=== PATIENT | male | born 1970 | race Caucasian/White ===

== ENCOUNTER 2018-07-21 07:10 | Inpatient (IN) | payer OTHER ==
[~2018-07-21 07:10] MED LIST: POVIDONE-IODINE 20 ML in SODIUM CL IRRIG SOLUTION 500 ML IRR ONE; ROPIVACAINE 0.2% 80 MG, EPINEPHrine 0.2 MG, KETOROLAC TROMETHAMINE 30 MG in SYRINGE 0 ML IU ONE; TRANEXAMIC ACID 1,000 MG in NS 100 ML IV ONE; TRANEXAMIC ACID 3,000 MG in NS (SYRINGE) 50 ML IRR ONE
[2018-07-21] MEDS ORDERED: GABAPENTIN 300 MG CAP PO ONE (09:58)
[2018-07-21] MEDS ORDERED: ONDANSETRON 4 MG/2 ML VIAL IVP ONE (09:58)
[2018-07-21] MEDS ORDERED: ACETAMINOPHEN 325 MG TAB PO ONE (09:58)
[2018-07-21] MEDS ORDERED: DEXAMETHASONE 4 MG/ML VIAL IVP ONE (09:58)
[2018-07-21] MEDS ORDERED: ceFAZolin 2 GM/DEXTROSE 100 ML IV ONE (09:58)
[2018-07-21] MEDS ORDERED: FAMOTIDINE 20 MG TAB PO ONE (09:58)
[2018-07-21] MEDS ORDERED: LR 1,000 ML IV ONE (10:00)
--- NOTE | 2018-07-21 10:26 | PDANEPAE ---
ANE History of Present Illness right knee OA for TKA ANE Past Medical History - Cardiovascular History Hx Hypertension: No Hx Arrhythmias: No Hx Chest Pain: No Hx Coronary Artery / Peripheral Vascular Disease: No Hx CHF / Valvular Disease: No Hx Palpitations: No - Pulmonary History Hx COPD: No Hx Asthma/Reactive Airway Disease: No Hx Recent Upper Respiratory Infection: No Hx Oxygen in Use at Home: No Hx Sleep Apnea: No Sleep Apnea Screening Result - Last Documented: Negative - Neurologic History Hx Cerebrovascular Accident: No Hx Seizures: No Hx Dementia: No - Endocrine History Hx Diabetes: No - Renal History Hx Renal Disorders: No - Liver History Hx Hepatic Disorders: No - Neurological & Psychiatric Hx Hx Neurological and Psychiatric Disorders: No - Cancer History Hx Cancer: No - Congenital Disorder History Hx Congenital Disorders: No - GI History Hx Gastrointestinal Disorders: No - Other Health History Other Health History: OSTEOARTHRITIS - Chronic Pain History Chronic Pain: Yes (RT KNEE) - Surgical History Prior Surgeries: UMBILICAL HERNIA 01/2018. RT KNEE SCOPE X2. RT SHLDR. LT SHLDR RTC ANE Review of Systems Review of systems is: negative Review of Systems: - Exercise capacity METS (RN): 5 METS ANE Patient History - Allergies Allergies/Adverse Reactions: No Known Allergies Allergy (Unverified 07/09/18 15:20) - Home Medications Home medications: home medication list seen and reviewed Home Medications: Glucosamine/Chondroitin [Glucosamine/Chondroitin (*)] 1 each PO DAILY 07/15/18 [ Last Taken 07/18/18] Multivitamins [Multivitamin (*)] 1 each PO DAILY 07/15/18 [Last Taken 3 Days Ago ~07/18/18] Vitamin B Complex [Vitamin B Complex (OTC)] 1 each PO DAILY 07/15/18 [Last Taken 3 Days Ago ~07/18/18] - NPO status NPO Since - Liquids (Date): 07/21/18 NPO Since - Liquids (Time): 08:00 NPO Since - Solids (Date): 07/20/18 NPO Since - Solids (Time): 20:00 - Anes Hx Anes Hx: no prior problems - Smoking Hx Smoking Status: Never smoked ANE Labs/Vital Signs - Labs Result Diagrams: 07/21/18 10:30 - Vital Signs Blood Pressure: 144/92 Heart Rate: 76 Respiratory Rate: 14 O2 Sat (%): 95 Height: 193.04 cm Weight: 131.542 kg ANE Physical Exam - Airway Neck exam: FROM Mallampati Score: Class 1 Mouth exam: normal dental/mouth exam - Pulmonary Pulmonary: no respiratory distress - Cardiovascular Cardiovascular: regular rate and rhythym - ASA Status ASA Status: II ANE Anesthesia Plan Anesthesia Plan: spinal Regional Anesthesia: continuous NB, adductor canal FNB
[2018-07-21] MEDS ORDERED: PROPOFOL/EMULSION 500 MG/50 ML BOTTLE IV ONE ×2 (10:27→12:48)
[2018-07-21] MEDS ORDERED: LIDOCAINE 2% 5 ML SDV ONE (10:28)
[2018-07-21] MEDS ORDERED: BUPIVACAINE/DEXTROSE 7.5MG/ML 2 ML SPINAL AMP SP ONE (10:28)
[2018-07-21 10:37] LABS: PLATELET COUNT 314 10^3/uL (150-400)
--- NOTE | 2018-07-21 11:02 | PDHPUP ---
History & Physical Update H&P update statement: This history and physical update is based on an assessment of the patient which was completed after admission or registration (within 24 hours), but prior to the surgery/procedure. H&P update: H&P reviewed & patient examined
[2018-07-21] MEDS ORDERED: VANCOMYCIN 1 GM VIAL ONE (11:04)
[2018-07-21] MEDS ORDERED: TRANEXAMIC ACID 3,000 MG/50 ML BAG IRR ONE (11:04)
[2018-07-21] MEDS ORDERED: ceFAZolin 1 GM/5 ML SYR ONE (11:05)
[2018-07-21] MEDS ORDERED: MIDAZOLAM 2 MG/2 ML VIAL IVP ONE (11:33)
[2018-07-21] MEDS ORDERED: ROPIVACAINE HCL 150 MG/30 ML INJ ONE (11:52)
--- NOTE | 2018-07-21 12:01 | POSTANESTH ---
Post Anesthetic Evaluation Cardiovascular Status: Normal, Stable Respiratory Status: Normal, Stable Level of Consciousness/Mental Status: Can Participate in Eval, Alert and Oriented Pain Control: Adequate, Prn Tx Ordered Nausea/Vomiting Control: Adequate, Prn Tx Ordered Complications Possibly Related to Anesthesia: None Noted
[2018-07-21] MEDS ORDERED: MAGNESIUM HYDROXIDE 30 ML UDCUP PO PRN (12:18)
[2018-07-21] MEDS ORDERED: TEMAZEPAM 15 MG CAP PO PRN (12:18)
[2018-07-21] MEDS ORDERED: traMADol 50 MG TAB PO PRN (12:18)
[2018-07-21] MEDS ORDERED: PROMETHAZINE HCL 25 MG/ML INJ IVP PRN (12:18)
[2018-07-21] MEDS ORDERED: METOCLOPRAMIDE 10 MG/2 ML VIAL IVP PRN (12:18)
[2018-07-21] MEDS ORDERED: NS 500 ML IV PRN (12:18)
[2018-07-21] MEDS ORDERED: ONDANSETRON 4 MG/2 ML VIAL IVP PRN ×2 (12:18→12:46)
[2018-07-21] MEDS ORDERED: CYCLOBENZAPRINE 10 MG TAB PO PRN (12:18)
[2018-07-21] MEDS ORDERED: diphenhydrAMINE 25 MG CAP PO PRN (12:18)
[2018-07-21] MEDS ORDERED: DIAZEPAM 5 MG TAB PO PRN (12:18)
[2018-07-21] MEDS ORDERED: oxyCODONE IR 5 MG TAB PO PRN ×2 (12:18→12:46)
[2018-07-21] MEDS ORDERED: PROMETHAZINE HCL 25 MG SUPPR PR PRN (12:18)
[2018-07-21] MEDS ORDERED: LACTULOSE 20 GM/30 ML UDCUP PO PRN (12:18)
[2018-07-21] MEDS ORDERED: DIPHENOXYLATE/ATROPINE LOMOTIL 1 TAB PO PRN (12:18)
[2018-07-21] MEDS ORDERED: POLYETHYLENE GLYCOL 3350 17 GM PKT PO PRN (12:18)
[2018-07-21] MEDS ORDERED: ONDANSETRON DISINTEGRATING 4 MG TAB PO PRN (12:18)
[2018-07-21] MEDS ORDERED: BISACODYL 10 MG SUPP PR PRN (12:18)
[2018-07-21] MEDS ORDERED: LR 1,000 ML IV SCH (12:30)
[2018-07-21] MEDS ORDERED: NALOXONE HCL 0.4 MG/ML INJ IVP PRN (12:46)
[2018-07-21] MEDS ORDERED: fentaNYL 100 MCG/2 ML INJ IVP PRN (12:46)
[2018-07-21] MEDS ORDERED: ACETAMINOPHEN 500 MG TAB PO PRN (12:46)
[2018-07-21] MEDS ORDERED: ALBUTEROL 3 ML DEYVIAL IH PRN (12:46)
[2018-07-21] MEDS ORDERED: HYDROCODONE/APAP 5/325 TAB PO PRN (12:46)
[2018-07-21] MEDS ORDERED: HYDROmorphONE/DILAUDID 2 MG/ML INJ IVP PRN (12:46)
--- NOTE | 2018-07-21 14:09 | PDMN ---
Medical Necessity Medical necessity: Pt meets inpt criteria per MD order and [facility]-700, Knee Arthroplasty, Total, A-2 days. 47 y/o w/unilateral primary OA of R knee admitted for R TKA and post-op care, pre-approved for inpt stay.
--- NOTE | 2018-07-21 14:26 | POSTOPPROG ---
Post Op Note Date of Operation: 07/21/18 Surgeon: Rafa Tong Front End Software Engineer: Rebekah Anesthesiologist: Travis Anesthesia: IV Sedation, Spinal Post-op Diagnosis: Severe degenerative arthritis Procedure: Right total knee arthroplasty Inf/Abcess present in the surg proc area at time of surgery?: No EBL: [id number]
[2018-07-21] MEDS: KETOROLAC 15 MG/1 ML SDV IVP SCH (17:32)
[2018-07-21] MEDS: ACETAMINOPHEN 325 MG TAB PO SCH (17:34)
--- NOTE | 2018-07-21 19:46 | GOP ---
[f rep st] OPERATIVE REPORT DATE OF OPERATION: 07/21/2018 SURGEON: Rafa Tong MD SPORTS MEDICINE COORDINATOR: 1. Best Beltrán CFA. 2. Dr. Pop Dumont. PREOPERATIVE DIAGNOSIS: Right knee severe degenerative arthritis. POSTOPERATIVE DIAGNOSIS: Right knee severe degenerative arthritis. PROCEDURE PERFORMED: On 07/21/2018, a right total knee arthroplasty, cemented, Samano and Nephew Jour shawnee II, posterior stabilized. FINDINGS: DESCRIPTION OF PROCEDURE: The patient was given 2 g of IV Ancef preoperatively, within 60 minutes of surgery. He also received 2000 mg of IV tranexamic acid preoperatively. He was placed on the [facility] room table and given spinal anesthesia with Marcaine by Dr. Robles. He was then placed supine and given IV sedation. A Stringer catheter was not used. A DEISY stocking and SCD were placed on the no noperative leg. A bolster was placed under his right hip to prevent excessive external rotation. His right lower extremity was prepped with ChloraPrep from the upper thigh tourniquet to the tips of the toes. It was draped free using sterile sheets, stockinette, and Ioban plastic adhesive drape. T he lower leg was wrapped with compressive Coban. The leg was exsanguinated with elevation and a 6-in ch compressive wrap, and the pneumatic tourniquet was inflated to 300 mmHg. He had a very large, bul ky leg. His BMI was 35. The [employer] time-out was performed to verify the correct patient identity and the c orrect surgical side and site. The [place] time-out was also performed. The Embraneayo leg holding device was sterilely attached to the operating room table and used throughout the procedure to help position the knee. A straight midline incision was made centered on the patell a. Subcutaneous tissue was sharply divided, and hemostasis was obtained using electrocautery. A med ial subcutaneous flap was developed, and the capsule and synovium were opened in a medial parapatella r fashion. Extensive degenerative changes were present in the medial compartment and the patellofemo ral joint. His medial capsule and periosteum were elevated off the rim of the medial tibial plateau, all the way around to the posteromedial corner. His medial collateral ligament was released enough to balance the medial side of the knee and correct the varus deformity. In order to improve the exposure, his patella was prepared first. The original thickness of the poole lla was measured. Peripheral osteophytes were removed. I cut a flat surface on the back of the poole lla. It was sized for a 41 mm round resurfacing component. I removed enough bone from the patella s uch that the remaining bone plus the thickness of the patellar component re-created the original thic kness of the patella. The composite thickness was 24 mm. The intramedullary alignment guide system was used to set up the distal femoral cut. The distal femu r was cut in 5 degrees of valgus. Because of a 15-degree flexion contracture, I made a +2 mm cut on the distal femur. The sizing jig was used to determine proper femoral sizing. He was a true size 9, without a shift. The 5-in-1 cutting block was applied, and the anterior and posterior condylar cuts and chamfer cuts were made. The final jig was used to remove the central portion of the distal femu r to accommodate the posterior-stabilized femoral component. I was careful to determine rotation by referencing off Maribell line and other bony landmarks. Each cut was checked for accuracy. The fem ur was sized for a size 9 posterior-stabilized component. Next, the tibia was prepared. The proximal tibial cut was made using the extramedullary alignment gu filipe system. The cut was made in a few degrees of posterior slope. I was careful to achieve proper v arus and valgus alignment and proper rotation. The posterior compartment was cleared of meniscal rem nants. Osteophytes were removed from the back of his femoral condyles. I checked the flexion and ex tension gaps, and they were equal and rectangular. His tibia was sized for a size 8 component. With the trial components in place, I selected a 9 mm polyethylene posterior-stabilized tibial insert. T he knee came to full extension, flexed to 125 degrees. His collateral ligaments were stable and joshua nced in 90 degrees of flexion and full extension. The trial patellar button was applied, and patella r tracking was checked. Tracking was excellent without any digital pressure. Then, 40 cc of the joint anesthetic cocktail was injected into the posterior capsule, the quadriceps muscle and tendon areas, and the subcutaneous tissues along the skin edges. The surfaces were prepared for cementing. They were carefully cleaned with the pulsating lavage irri gation and thoroughly dried. The MoxtraoJet device was used to blow dry the cancellous surfaces. A do uble batch of high-viscosity methylmethacrylate cement with 2 g of powdered vancomycin added was mixe d. While it was still in a doughy state, all [address] components were cemented in place. Excess cement was removed before it hardened. The 9 mm trial tibial insert was re-tried and was the proper thickness. The actual component was ins erted and locked into place. The knee was thoroughly irrigated one final time with a dilute Betadine solution. The tourniquet was deflated. Total tourniquet time was 1 hour and 8 minutes. Then, 50 mL of tranexa antionette acid solution was irrigated into the wound. The vastus medialis portion of the extensor mechanism was repaired with several interrupted figure-of -eight #2 FiberWire sutures. The capsule and synovium were closed first with multiple interrupted fi [id number] PDS sutures, followed by a running #2 barbed Ethicon Stratafix PDO suture. Subcutane ous tissues were closed with a running 0 barbed Ethicon Stratafix Monoderm suture. The skin was clos ed with a running 3-0 barbed Ethicon Stratafix Monoderm subcuticular suture. The skin was sealed wit h 1/2-inch Steri-Strips. The wound was covered with a large Mepilex waterproof dressing, and the kne e was wrapped with Kerlix and a 6-inch compressive wrap. A long-leg DEISY stocking and SCD were applie d, followed by the cooling device. The patient wore a stocking and SCD on the opposite leg during th e procedure. The sacral Mepilex dressing was applied. I used a size 9 Samano and Nephew cemented Oxinium posterior-stabilized femoral component, size 8 ceme nted tibial base plate, a 9 mm posterior-stabilized tibial insert, and a 41 mm cemented round all-lul yethylene resurfacing patellar component. The estimated blood loss following deflation of the tourniquet was about 100 cc. The sponge and needle counts were correct on 2 occasions. He was awakened from anesthesia, transferred to his gurney, and taken to the PACU in satisfactory con dition. There were no recognized intraoperative complications. In the PACU, for additional postoper ative pain control, Dr. Robles performed an adductor canal block with an indwelling catheter. Best Beltrán and Dr. Pop Dumont acted as surgical assistants. Their assistance was a medical kamila you for safe completion of the procedure. /[id number]/MODL
[2018-07-21] MEDS: ceFAZolin 2 GM/DEXTROSE 100 ML IV SCH (20:45)
[2018-07-21] MEDS: ASPIRIN 325 MG TAB PO SCH (20:45)
[2018-07-21] MEDS: SENNOSIDES/DOCUSATE SODIUM TAB PO SCH (20:45)
[2018-07-21] MEDS: FAMOTIDINE 20 MG TAB PO SCH (20:46)
[2018-07-22] MEDS: ACETAMINOPHEN 325 MG TAB PO SCH ×3 (00:27→11:33)
[2018-07-22] MEDS: KETOROLAC 15 MG/1 ML SDV IVP SCH ×3 (00:27→11:32)
[2018-07-22] MEDS: ceFAZolin 2 GM/DEXTROSE 100 ML IV SCH (04:23)
--- NOTE | 2018-07-22 07:32 | SOAPPROG ---
SOAP Progress Note Assessment/Plan: Assessment: Afebrile. Awake and alert. Moderate pain. He has been up and walking. Needed Stringer catheter 1 time last night. He is voiding spontaneously now. Postop H&H are good. Postop films look good. Plan: Physical therapy for stairs this morning. Full-length alignment film this morning. Discharge today. 07/22/18 07:31 Objective: Vital Signs Temp Pulse Resp BP Pulse Ox 36.7 C 74 14 119/83 H 99 07/22/18 07:23 07/22/18 07:23 07/22/18 07:23 07/22/18 07:23 07/22/18 07:23 Laboratory Results 07/22/18 04:26 07/21/18 07/22/18 07/23/18 05:59 05:59 05:59 Intake Total 3360 Output Total 2150 Balance 1210 ICD10 Worksheet Patient Problems: Problems Problem Status Onset Osteoarthritis of right knee Acute
--- NOTE | 2018-07-22 07:57 | GDS ---
[f rep st] DISCHARGE SUMMARY ADMISSION DIAGNOSIS: Right knee severe degenerative arthritis. DISCHARGE DIAGNOSIS: Right knee severe degenerative arthritis. OPERATION PERFORMED: 07/21/2018, a right total knee arthroplasty. POSTOPERATIVE COMPLICATIONS: None. CONDITION ON DISCHARGE: Improved. DESCRIPTION OF HOSPITAL COURSE: The patient was admitted to the hospital on the morning of surgery. His admission CBC was normal. The same day, under a combination of Marcaine spinal, IV sedation and adductor canal block, he underwent a right total knee arthroplasty. Postoperatively, he was treated with multimodal DVT prophylaxis. He needed Stringer catheterization 1 time, but was able to void spont aneously after that. On the first postoperative day, his hemoglobin and hematocrit were 14.7 and 42. 4. He was seen by Physical Therapy and made good progress with ambulation and stairs. By the time o f discharge, he was afebrile and was independent walking with crutches. DISPOSITION: The patient discharged to his home. He will go to outpatient physical therapy next week at my office. I will see him back in the office on August 05, 2018. Continue aspirin 325 mg p.o. daily for 21 days. He has prescriptions for Tricia brex, tramadol and oxycodone for pain control. He may progress to full weightbearing on the right as tolerated. Use DEISY stockings for 1 week. If there are any problems, he is to call me at the office . /[id number]/MODL
[2018-07-22] MEDS: FAMOTIDINE 20 MG TAB PO SCH (08:25)
[2018-07-22] MEDS: SENNOSIDES/DOCUSATE SODIUM TAB PO SCH (08:26)
[2018-07-22] MEDS: ASPIRIN 325 MG TAB PO SCH (08:26)
[2018-07-22] MEDS ORDERED: ROPIVACAINE HCL 100 MG/20 ML INJ ONE (09:39)
--- NOTE | 2018-07-22 10:43 | ASMTLACE ---
CHRISTIAN Length of stay for Answers: 2 days current admission Acuity / Level of Answers: Yes Care: Did the patient have an inpatient admission? # of Emergency department Answers: 0 visits in the last 6 months Score: 5 Date Signed: 07/22/2018 10:43 AM Electronically Signed By:FARA Rachel
--- NOTE | 2018-07-22 10:44 | ASMTCMCOM ---
CM Note CM Note Notes: Pt had planned OA of knee, resides with spouse. PT and MD rec outpatient PT. No CM d/c needs identified. Date Signed: 07/22/2018 10:44 AM Electronically Signed By:FARA Rachel
[2018-07-22] MEDS ORDERED: LIPID EMULSION 20% 100 ML IV PRN (10:48)
--- NOTE | 2018-07-22 10:50 | PDPAINCON ---
Pain Management Consultation Patient referred by : Ran - Subjective Pain at rest (/10): 1 Pain with activity (/10): 2 Pain is: low, well controlled Side effects include: drowsy, No itchiness, No rash Activity: able to ambulate - Objective Technique: continuous peripheral nerve block (ropivacaine 0.5%) Catheter site: clean, dry, intact, no erythema/edema/exudate Sensory and motor exam: consistent with block Vital signs: stable - Assessment/Plan Assessment/Plan: pain well-controlled, continue current mgmt (POD 1 s/p R TKA with indwelling adductor canal catheter in place. Re-dosed with 0.5% ropivacaine 30ml today and catheter removed without complication. Patient reports excellent analgesia.)
[2018-07-22 11:44] VITALS: BP 145/82
== END 2018-07-22 13:12 | disposition home or self-care (01) | DRG 470 ==
LOC: F3E 09:50 → F3N 16:05
PROVIDERS: ADMIT Orthopaedic Surgery; ATTEND Orthopaedic Surgery
PROC: 0SRC0J9 Replacement of Right Knee Joint with Synthetic Substitute, Cemented, Open Approach (ICD-10-PCS; principal; 2018-07-21 12:00)
DX: M17.11 Unilateral primary osteoarthritis, right knee (principal); I10 Essential (primary) hypertension
CPT/HCPCS: 97161-GP; 97165-GO; C1713; J0171; J0690; J1100; J1885; J2250; J2405; J2704; J2795; J3370